=== PATIENT | female | born 1935 | race Caucasian/White ===

== ENCOUNTER 2018-10-02 11:43 | Emergency (ER) | payer OTHER, MEDICAID ==
[~2018-10-02] VITALS: Ht 152.4 cm; Wt 65.0 kg
[2018-10-02] MEDS ORDERED: ATOR40TA70 PO (11:54)
[2018-10-02] MEDS ORDERED: LOSA1TAB40 PO (11:54)
[2018-10-02] MEDS ORDERED: ATEN-42 PO (11:54)
[2018-10-02] MEDS ORDERED: ASPI-1159 PO (11:54)
[2018-10-02] MEDS ORDERED: HYDRALAZINE HCL 50MG TABLET PO ONE (12:15)
[2018-10-02 12:42] LABS: BASOPHILS % 0.8 % (0.0-2.0); EOSINOPHILS % 2.5 % (0.0-5.0); HEMATOCRIT. 36.4 % (36.0-48.0); HEMOGLOBIN. 12.3 g/dL (12.0-16.0); LYMPHOCYTES % 24.8 % (20.0-50.0); MEAN CORPUSCULAR HEMOGLOBIN 30.9 pg (28.0-32.0); MEAN CORPUSCULAR VOLUME 91.4 fL (81.0-99.0); MEAN PLATELET VOLUME 10.9 fl (7.4-10.4); MONOCYTES % 12.2 % (2.0-8.0); NEUTROPHILS % 59.7 % (40.0-76.0); PLATELET 176 x1000/uL (130-400); RED BLOOD CELL COUNT 3.98 mill/uL (4.2-5.4); RED CELL DISTRIBUTION WIDTH 13.5 % (11.6-14.6)
[2018-10-02 12:48] LABS: CHLORIDE 108 mEq/L (98-107)
[2018-10-02 13:53] VITALS: BP 146/60
== END 2018-10-02 13:57 | disposition home or self-care (01) ==
LOC: ER 11:43
DX: I10 Essential (primary) hypertension (principal); E78.00 Pure hypercholesterolemia, unspecified; E78.5 Hyperlipidemia, unspecified; Z79.82 Long term (current) use of aspirin; Z79.899 Other long term (current) drug therapy
CPT/HCPCS: 36415; 93005; 99284